=== PATIENT | female | born 1945 | race Caucasian/White ===

== ENCOUNTER 2017-11-24 16:06 | Emergency (ER) | payer MEDICARE, MEDICAID ==
[~2017-11-24] VITALS: Ht 152.4 cm; Wt 62.0 kg
[2017-11-24 16:18] VITALS: BP 156/61
== END 2017-11-24 18:14 | disposition left against medical advice (07) ==
LOC: ER 16:06
DX: E11.649 Type 2 diabetes mellitus with hypoglycemia without coma (principal); R41.82 Altered mental status, unspecified; Z71.89 Other specified counseling; I10 Essential (primary) hypertension
CPT/HCPCS: 82962; 99283

== ENCOUNTER 2018-08-18 12:32 | Inpatient (IN) | payer MEDICARE, OTHER ==
[~2018-08-18] VITALS: Ht 172.7 cm; Wt 57.9 kg
[2018-08-18] MEDS ORDERED: SODIUM CHLORIDE 0.9% 500 ML IV ONE (13:51)
[2018-08-18 14:41] LABS: HEMOGLOBIN. 9.6 g/dL (12.0-16.0); MEAN CORPUSCULAR HEMOGLOBIN 31.7 pg (28.0-32.0); MEAN PLATELET VOLUME 8.9 fl (7.4-10.4); PLATELET 206 x1000/uL (130-400); RED BLOOD CELL COUNT 3.04 mill/uL (4.2-5.4); RED CELL DISTRIBUTION WIDTH 13.1 % (11.6-14.6)
[2018-08-18 14:42] LABS: CHLORIDE 97 mEq/L (98-107)
[2018-08-18 14:48] LABS: PROTHROMBIN TIME 10.5 sec (9.6-11.0)
[2018-08-18 15:23] LABS: PLATELET ESTIMATE NORMAL
[2018-08-18] MEDS ORDERED: INSULIN REGULAR (HUMULIN R) 300UNITS/3ML SUBCUT NR (16:45)
[2018-08-18] MEDS ORDERED: INSULIN GLARGINE UD 100 UNITS/ML SYR SUBCUT SCH (22:00)
[2018-08-18 22:15] VITALS: BP 120/53
[2018-08-18 22:25] VITALS: BP 120/53
[2018-08-18] MEDS ORDERED: DIPHENHYDRAMINE 50MG/ML VIAL IV PRN (22:45)
[2018-08-18] MEDS ORDERED: ONDANSETRON HCL 4MG/2ML INJ IV PRN (22:45)
[2018-08-18] MEDS ORDERED: ACETAMINOPHEN 325MG TABLET PO PRN (22:45)
[2018-08-18] MEDS ORDERED: CLONIDINE 0.1MG TABLET PO PRN (22:45)
[2018-08-18] MEDS ORDERED: IPRATROPIUM/ALBUTEROL 0.5-3(2.5)MG/3ML NEB INH PRN (22:45)
[2018-08-18] MEDS ORDERED: INSU100C6 SQ (23:21)
[2018-08-18] MEDS ORDERED: AMLO10TA80 PO (23:21)
[2018-08-18] MEDS ORDERED: CALC-1042 PO (23:21)
[2018-08-18] MEDS ORDERED: AMLO5TAB4 PO (23:21)
[2018-08-18] MEDS ORDERED: LIP40 PO (23:21)
[2018-08-18] MEDS ORDERED: LOSA50TA20 PO (23:21)
[2018-08-18] MEDS ORDERED: INSU100I22 SQ (23:23)
[2018-08-18 23:50] VITALS: BP 109/43
[2018-08-19] MEDS: SODIUM CHLORIDE 0.9% 1,000 ML IV SCH ×2 (00:50→10:24)
[2018-08-19] MEDS: INSULIN GLARGINE UD 100 UNITS/ML SYR SUBCUT SCH ×2 (00:52→21:28)
[2018-08-19] MEDS ORDERED: LEVOFLOXACIN 500MG PREMIX 100 ML IV NR (01:00)
[2018-08-19 04:01] VITALS: BP 105/66
[2018-08-19] MEDS: BLOOD SUGAR DIAGNOSTIC STRIP TEST SCH ×4 (06:25→21:20)
[2018-08-19] MEDS: DEXTROSE 50% WATER 50ML SYRINGE IV PRN (06:25)
[2018-08-19 06:29] LABS: CLARITY URINE TURBID (CLEAR); COLOR URINE YELLOW (YELLOW); KETONES URINE NEGATIVE (NEGATIVE); LEUKOCYTE ESTERASE URINE 3+ (NEGATIVE); NITRITE URINE NEGATIVE (NEGATIVE); OCCULT BLOOD URINE 2+ (NEGATIVE); PROTEIN URINE 3+ (NEGATIVE); UROBILINOGEN URINE 0.2 E.U./dL (0.2-1.0)
[2018-08-19 07:21] LABS: BASOPHILS % 0.1 % (0.0-2.0); EOSINOPHILS % 0.1 % (0.0-5.0); HEMATOCRIT. 26.9 % (36.0-48.0); HEMOGLOBIN. 9.3 g/dL (12.0-16.0); LYMPHOCYTES % 7.6 % (20.0-50.0); MEAN CORPUSCULAR HEMOGLOBIN 31.6 pg (28.0-32.0); MEAN CORPUSCULAR VOLUME 91.2 fL (81.0-99.0); MEAN PLATELET VOLUME 9.6 fl (7.4-10.4); MONOCYTES % 6.5 % (2.0-8.0); NEUTROPHILS % 85.7 % (40.0-76.0); PLATELET 188 x1000/uL (130-400); RED BLOOD CELL COUNT 2.95 mill/uL (4.2-5.4); RED CELL DISTRIBUTION WIDTH 12.9 % (11.6-14.6)
[2018-08-19] MEDS: INSULIN LISPRO 100 UNITS/ML SUBCUT SCH ×4 (07:50→21:28)
[2018-08-19 08:00] VITALS: BP 130/49
[2018-08-19] MEDS ORDERED: PNEUMOCOCCAL 23-VAL P-SAC VAC 0.5 ML IM ONE (08:00)
[2018-08-19] MEDS: AMLODIPINE 2.5MG TABLET PO SCH (09:09)
[2018-08-19 09:24] LABS: PHOSPHORUS 3.6 mg/dL (2.5-4.9)
[2018-08-19 12:00] VITALS: BP 126/53
[2018-08-19] MEDS: CITRIC ACID/SODIUM CITRATE SOLN 30ML UDC PO SCH ×2 (14:46→17:24)
[2018-08-19 16:00] VITALS: BP 132/58
[2018-08-19 20:33] VITALS: BP 154/61
[2018-08-20] MEDS: SODIUM CHLORIDE 0.9% 1,000 ML IV SCH (00:38)
[2018-08-20 00:42] VITALS: BP 143/49
[2018-08-20] MEDS ORDERED: CEFEPIME 1,000 MG in DEXTROSE 5% WATER 50 ML IV SCH ×2 (01:00→21:00)
[2018-08-20 04:00] VITALS: BP 140/49
[2018-08-20] MEDS: BLOOD SUGAR DIAGNOSTIC STRIP TEST SCH ×4 (06:31→20:58)
[2018-08-20 07:00] LABS: BASOPHILS % 0.4 % (0.0-2.0); EOSINOPHILS % 0.3 % (0.0-5.0); HEMATOCRIT. 26.1 % (36.0-48.0); LYMPHOCYTES % 8.9 % (20.0-50.0); MEAN CORPUSCULAR HEMOGLOBIN 31.5 pg (28.0-32.0); MEAN CORPUSCULAR VOLUME 91.3 fL (81.0-99.0); MEAN PLATELET VOLUME 9.3 fl (7.4-10.4); MONOCYTES % 8.8 % (2.0-8.0); NEUTROPHILS % 81.6 % (40.0-76.0); PLATELET 170 x1000/uL (130-400); RED BLOOD CELL COUNT 2.86 mill/uL (4.2-5.4); RED CELL DISTRIBUTION WIDTH 13.3 % (11.6-14.6)
[2018-08-20 07:52] VITALS: BP 118/34
[2018-08-20] MEDS: AMLODIPINE 2.5MG TABLET PO SCH (08:51)
[2018-08-20] MEDS: CITRIC ACID/SODIUM CITRATE SOLN 30ML UDC PO SCH ×3 (08:52→18:05)
[2018-08-20] MEDS ORDERED: POTASSIUM CHLORIDE 20MEQ TABLET SR PO NR (09:30)
[2018-08-20 11:18] VITALS: BP 125/81
[2018-08-20 16:01] VITALS: BP 134/51
[2018-08-20 20:01] VITALS: BP 154/64
[2018-08-20] MEDS: INSULIN LISPRO 100 UNITS/ML SUBCUT SCH (20:58)
[2018-08-20] MEDS: INSULIN GLARGINE UD 100 UNITS/ML SYR SUBCUT SCH (21:33)
[2018-08-21 00:31] VITALS: BP 133/55
[2018-08-21 04:00] VITALS: BP 133/41
[2018-08-21] MEDS: SODIUM CHLORIDE 0.9% 1,000 ML IV SCH (05:16)
[2018-08-21] MEDS: BLOOD SUGAR DIAGNOSTIC STRIP TEST SCH ×4 (06:21→20:06)
[2018-08-21 07:18] LABS: BASOPHILS % 0.5 % (0.0-2.0); HEMATOCRIT. 26.5 % (36.0-48.0); HEMOGLOBIN. 9.1 g/dL (12.0-16.0); LYMPHOCYTES % 11.2 % (20.0-50.0); MEAN CORPUSCULAR HEMOGLOBIN 31.3 pg (28.0-32.0); MEAN CORPUSCULAR VOLUME 90.9 fL (81.0-99.0); MEAN PLATELET VOLUME 8.7 fl (7.4-10.4); MONOCYTES % 9.7 % (2.0-8.0); NEUTROPHILS % 77.6 % (40.0-76.0); PLATELET 178 x1000/uL (130-400); RED BLOOD CELL COUNT 2.91 mill/uL (4.2-5.4); RED CELL DISTRIBUTION WIDTH 13.2 % (11.6-14.6)
[2018-08-21] MEDS: INSULIN LISPRO 100 UNITS/ML SUBCUT SCH ×4 (07:33→20:06)
[2018-08-21 08:00] VITALS: BP 129/54
[2018-08-21] MEDS: CITRIC ACID/SODIUM CITRATE SOLN 30ML UDC PO SCH ×3 (08:52→17:18)
[2018-08-21] MEDS: AMLODIPINE 2.5MG TABLET PO SCH (08:53)
[2018-08-21] MEDS ORDERED: MAGNESIUM 1 G PREMIX 100 ML IV NR (11:30)
[2018-08-21] MEDS ORDERED: POTASSIUM PHOS,M-BASIC-D-BASIC 15 MMOL in DEXT 5% WATER 245 ML IV NR (11:30)
[2018-08-21 12:03] VITALS: BP 145/48
[2018-08-21 15:58] VITALS: BP 137/44
[2018-08-21 20:00] VITALS: BP 140/43
[2018-08-21] MEDS: MEROPENEM 500 MG in SODIUM CHLORIDE 0.9% 50 ML IV SCH (20:06)
[2018-08-21] MEDS: INSULIN GLARGINE UD 100 UNITS/ML SYR SUBCUT SCH (22:58)
[2018-08-21] MEDS ORDERED: LEVOFLOXACIN 250MG PREMIX 50 ML IV SCH ×2 (23:00)
[2018-08-22] VITALS: BP 129/42
[2018-08-22 04:00] VITALS: BP 132/40
[2018-08-22] MEDS: DEXTROSE 50% WATER 50ML SYRINGE IV PRN (05:15)
[2018-08-22] MEDS: BLOOD SUGAR DIAGNOSTIC STRIP TEST SCH ×4 (05:16→20:54)
[2018-08-22 07:09] LABS: BASOPHILS % 0.5 % (0.0-2.0); EOSINOPHILS % 2.6 % (0.0-5.0); HEMATOCRIT. 24.5 % (36.0-48.0); HEMOGLOBIN. 8.5 g/dL (12.0-16.0); LYMPHOCYTES % 14.6 % (20.0-50.0); MEAN CORPUSCULAR HEMOGLOBIN 31.7 pg (28.0-32.0); MEAN CORPUSCULAR VOLUME 91.5 fL (81.0-99.0); MONOCYTES % 10.2 % (2.0-8.0); NEUTROPHILS % 72.1 % (40.0-76.0); PLATELET 183 x1000/uL (130-400); RED BLOOD CELL COUNT 2.67 mill/uL (4.2-5.4); RED CELL DISTRIBUTION WIDTH 12.8 % (11.6-14.6)
[2018-08-22] MEDS: INSULIN LISPRO 100 UNITS/ML SUBCUT SCH ×4 (07:50→21:06)
[2018-08-22 08:00] VITALS: BP 135/55
[2018-08-22 08:07] LABS: PHOSPHORUS 2.2 mg/dL (2.5-4.9)
[2018-08-22] MEDS: CITRIC ACID/SODIUM CITRATE SOLN 30ML UDC PO SCH ×3 (09:04→18:25)
[2018-08-22] MEDS: MEROPENEM 500 MG in SODIUM CHLORIDE 0.9% 50 ML IV SCH ×2 (09:04→20:54)
[2018-08-22] MEDS: AMLODIPINE 2.5MG TABLET PO SCH (09:08)
[2018-08-22] MEDS ORDERED: SODIUM CHLORIDE 0.45% 1,000 ML IV SCH (09:15)
[2018-08-22 12:00] VITALS: BP 136/60
[2018-08-22 16:00] VITALS: BP 146/56
[2018-08-22 20:00] VITALS: BP 158/51
[2018-08-22] MEDS: INSULIN GLARGINE UD 100 UNITS/ML SYR SUBCUT SCH (21:07)
[2018-08-23] VITALS: BP 149/50
[2018-08-23 04:00] VITALS: BP 147/52
[2018-08-23 06:36] LABS: BASOPHILS % 0.6 % (0.0-2.0); EOSINOPHILS % 2.2 % (0.0-5.0); HEMATOCRIT. 27.6 % (36.0-48.0); HEMOGLOBIN. 9.5 g/dL (12.0-16.0); LYMPHOCYTES % 15.6 % (20.0-50.0); MEAN CORPUSCULAR HEMOGLOBIN 31.5 pg (28.0-32.0); MEAN CORPUSCULAR VOLUME 91.7 fL (81.0-99.0); MEAN PLATELET VOLUME 8.9 fl (7.4-10.4); MONOCYTES % 8.3 % (2.0-8.0); NEUTROPHILS % 73.3 % (40.0-76.0); PLATELET 226 x1000/uL (130-400); RED BLOOD CELL COUNT 3.01 mill/uL (4.2-5.4)
[2018-08-23] MEDS: DEXTROSE 50% WATER 50ML SYRINGE IV PRN (07:17)
[2018-08-23] MEDS: INSULIN LISPRO 100 UNITS/ML SUBCUT SCH ×4 (07:50→21:05)
[2018-08-23 08:00] VITALS: BP 135/57
[2018-08-23] MEDS ORDERED: POTASSIUM CHLORIDE 20MEQ/PACKET PO NR (08:00)
[2018-08-23] MEDS: MEROPENEM 500 MG in SODIUM CHLORIDE 0.9% 50 ML IV SCH ×2 (08:54→20:41)
[2018-08-23] MEDS: CITRIC ACID/SODIUM CITRATE SOLN 30ML UDC PO SCH ×3 (08:54→17:29)
[2018-08-23] MEDS: AMLODIPINE 2.5MG TABLET PO SCH (08:55)
[2018-08-23] MEDS: DEXT 5%/0.45% NACL 1000ML 1,000 ML IV SCH (08:56)
[2018-08-23 12:00] VITALS: BP 145/50
[2018-08-23] MEDS: BLOOD SUGAR DIAGNOSTIC STRIP TEST SCH ×3 (12:42→20:42)
[2018-08-23 16:00] VITALS: BP 162/59
[2018-08-23 20:07] VITALS: BP 149/58
[2018-08-23] MEDS: INSULIN GLARGINE UD 100 UNITS/ML SYR SUBCUT SCH (21:06)
[2018-08-24 00:31] VITALS: BP 143/58
[2018-08-24 04:00] VITALS: BP 148/57
[2018-08-24] MEDS: DEXT 5%/0.45% NACL 1000ML 1,000 ML IV SCH (04:54)
[2018-08-24 05:46] LABS: BASOPHILS % 0.7 % (0.0-2.0); EOSINOPHILS % 3.8 % (0.0-5.0); HEMATOCRIT. 23.7 % (36.0-48.0); HEMOGLOBIN. 8.3 g/dL (12.0-16.0); LYMPHOCYTES % 18.2 % (20.0-50.0); MEAN CORPUSCULAR HEMOGLOBIN 32.1 pg (28.0-32.0); MEAN CORPUSCULAR VOLUME 92.2 fL (81.0-99.0); MEAN PLATELET VOLUME 8.1 fl (7.4-10.4); MONOCYTES % 8.7 % (2.0-8.0); NEUTROPHILS % 68.6 % (40.0-76.0); PLATELET 218 x1000/uL (130-400); RED BLOOD CELL COUNT 2.58 mill/uL (4.2-5.4)
[2018-08-24] MEDS: BLOOD SUGAR DIAGNOSTIC STRIP TEST SCH ×4 (06:39→21:00)
[2018-08-24] MEDS ORDERED: SODIUM BICARBONATE 4% (2.4MEQ) 5ML VIAL IV ONE (07:41)
[2018-08-24] MEDS ORDERED: LIDOCAINE HCL 1% 20ML VIAL (Pyxis) INJ ONE (07:42)
[2018-08-24] MEDS: INSULIN LISPRO 100 UNITS/ML SUBCUT SCH ×4 (07:50→21:13)
[2018-08-24] MEDS: AMLODIPINE 2.5MG TABLET PO SCH (09:20)
[2018-08-24] MEDS: MEROPENEM 500 MG in SODIUM CHLORIDE 0.9% 50 ML IV SCH ×2 (09:20→21:02)
[2018-08-24] MEDS: CITRIC ACID/SODIUM CITRATE SOLN 30ML UDC PO SCH ×3 (09:20→18:30)
[2018-08-24 12:00] VITALS: BP 162/59
[2018-08-24 16:00] VITALS: BP 154/58
[2018-08-24 20:00] VITALS: BP 127/45
[2018-08-24] MEDS: INSULIN GLARGINE UD 100 UNITS/ML SYR SUBCUT SCH (22:06)
[2018-08-25] VITALS: BP 145/52
[2018-08-25 04:00] VITALS: BP 136/57
[2018-08-25] MEDS: DEXT 5%/0.45% NACL 1000ML 1,000 ML IV SCH (06:05)
[2018-08-25] MEDS: BLOOD SUGAR DIAGNOSTIC STRIP TEST SCH ×2 (06:25→12:20)
[2018-08-25] MEDS: INSULIN LISPRO 100 UNITS/ML SUBCUT SCH ×3 (06:54→14:06)
[2018-08-25] MEDS: AMLODIPINE 2.5MG TABLET PO SCH (10:03)
[2018-08-25] MEDS: MEROPENEM 500 MG in SODIUM CHLORIDE 0.9% 50 ML IV SCH (10:03)
[2018-08-25] MEDS: CITRIC ACID/SODIUM CITRATE SOLN 30ML UDC PO SCH ×2 (10:03→14:02)
[2018-08-25 12:00] VITALS: BP 134/51
[2018-08-25 13:22] VITALS: BP 131/71
== END 2018-08-25 16:02 | disposition home health service (06) | DRG 871 ==
LOC: ER 12:32 → 6WST 17:09 → EDBEDREQTM 17:12 → EDBEDREQ 17:12 → ENRESERV 20:33
PROVIDERS: ADMIT Internal Medicine; ATTEND Internal Medicine
PROC: 02HV33Z Insertion of Infusion Device into Superior Vena Cava, Percutaneous Approach (ICD-10-PCS; principal; 2018-08-24)
PROC: B548ZZA Ultrasonography of Superior Vena Cava, Guidance (ICD-10-PCS; 2018-08-24)
PROC: B5181ZA Fluoroscopy of Superior Vena Cava using Low Osmolar Contrast, Guidance (ICD-10-PCS; 2018-08-24)
DX: A41.51 Sepsis due to Escherichia coli [E. coli] (principal); G93.41 Metabolic encephalopathy; N17.9 Acute kidney failure, unspecified; E87.1 Hypo-osmolality and hyponatremia; E87.2 Acidosis; N39.0 Urinary tract infection, site not specified; E78.00 Pure hypercholesterolemia, unspecified; E86.0 Dehydration; I12.9 Hypertensive chronic kidney disease with stage 1 through stage 4 chronic kidney disease, or unspecified chronic kidney disease; N18.9 Chronic kidney disease, unspecified; E11.22 Type 2 diabetes mellitus with diabetic chronic kidney disease; D63.8 Anemia in other chronic diseases classified elsewhere; E11.649 Type 2 diabetes mellitus with hypoglycemia without coma; Z82.49 Family history of ischemic heart disease and other diseases of the circulatory system; Z83.3 Family history of diabetes mellitus; Z98.891 History of uterine scar from previous surgery; Z98.49 Cataract extraction status, unspecified eye
CPT/HCPCS: 36415; 36569; 36573; 71045; 76700; 80048; 82010; 82962; 83036; 83605; 83735; 83880; 84100; 84484; 87077; 87186; 90732; 93005; 93970; 96372; 99285; C1725; J0692; J1815; J1956; J2185; J3475; J3490; J7030; J7050; J7060

== ENCOUNTER 2023-10-01 15:36 | Emergency (ER) | payer MEDICARE, MEDICAID ==
[~2023-10-01] VITALS: Ht 152.4 cm; Wt 56.0 kg
[~2023-10-01 15:36] MED LIST: AMLO10TA80 PO; AMLO5TAB4 PO; CALC-1042 PO; INSU100C6 SQ; INSU100I22 SQ; LIP40 PO; LOSA50TA41 PO
[2023-10-01 15:57] VITALS: O2SAT 100
[2023-10-01] MEDS ORDERED: DICL100G58 TP (18:37)
[2023-10-01 18:53] VITALS: BP 146/50; PULSE 72; RESP 16; TEMP 98
== END 2023-10-01 18:56 | disposition home or self-care (01) ==
LOC: ER 15:36
DX: M25.472 Effusion, left ankle (principal); E11.9 Type 2 diabetes mellitus without complications; I10 Essential (primary) hypertension; E78.00 Pure hypercholesterolemia, unspecified; Z79.899 Other long term (current) drug therapy
CPT/HCPCS: 73610; 93971; 99284